=== PATIENT | female | born 1960 | race Caucasian/White ===

== ENCOUNTER 2017-01-13 15:22 | Observation (INO) | payer OTHER ==
[~2017-01-13] VITALS: Ht 162.6 cm; Wt 90.0 kg
[2017-01-13] VITALS (7 sets, daily range): BP systolic 122–136; BP diastolic 57–65; PULSE 69–90; RESP 18–24; TEMP 98.1–98.8; O2SAT 97–99
[~2017-01-13 15:22] MED LIST: ALBU6.7H INH; SYNT137T PO
[2017-01-13] MEDS ORDERED: SODIUM CHLOR 0.9% 1000 ML INJ 1,000 ML IV ONE (15:42)
[2017-01-13] MEDS ORDERED: DILTIAZEM HCL 25 MG/5 ML VIAL IV ONE (15:45)
--- NOTE | 2017-01-13 16:00 | RADRPT ---
EXAM DATE/TIME: 01/13/2017 15:42 [place] COMPARISON: No previous studies available for comparison. INDICATIONS : Chest pain. MEDICAL HISTORY : Hypertension. SURGICAL HISTORY : None. ENCOUNTER: Initial ACUITY: 1 day PAIN SCORE: 10/10 LOCATION: Bilateral chest FINDINGS: A single view of the chest demonstrates the lungs to be symmetrically aerated without evidence of mas s, infiltrate or effusion. The cardiomediastinal contours are unremarkable. Osseous structures are intact. CONCLUSION: 1. No acute cardiopulmonary disease. Wild Alicia MD on January 13, 2017 at 15:58 Board Certified Radiologist. This report was verified electronically.
[2017-01-13] MEDS ORDERED: LEVO-86 PO (16:02)
[2017-01-13] MEDS ORDERED: ALBU.5I NEB (16:02)
[2017-01-13] MEDS ORDERED: AMOX500C PO (16:02)
[2017-01-13] MEDS ORDERED: PANT20 PO (16:02)
[2017-01-13 16:18] LABS: AUTOMATED NEUTROPHIL # 5.9 TH/MM3 (1.8-7.7); BASOPHIL % 0.4 % (0.0-2.0); EOSINOPHIL # 0.2 TH/MM3 (0-0.4); EOSINOPHIL % 1.9 % (0.0-4.0); HEMO FLAGS DIFF FINAL; LYMPH % 24.4 % (9.0-44.0); LYMPHOCYTE # 2.3 TH/MM3 (1.0-4.8); MEAN CELL VOLUME 84.8 FL (80.0-100.0); MEAN CORPUSCULAR HEMOGLOBIN 29.2 PG (27.0-34.0); MEAN CORPUSCULAR HGB CONC 34.5 % (32.0-36.0); MONO % 9.8 % (0.0-8.0); NEUT % 63.5 % (16.0-70.0); PLATELET COUNT 212 TH/MM3 (150-450); RED BLOOD COUNT 4.72 MIL/MM3 (4.00-5.30); RED CELL DISTRIBUTION WIDTH 13.8 % (11.6-17.2); WHITE BLOOD COUNT 9.2 TH/MM3 (4.0-11.0)
[2017-01-13 16:19] LABS: BLOOD, URINE NEG (NEG); COMMENT (UR) CULT NOT INDICATED; CULTURE IF INDICATED CULT NOT INDICATED; GLUCOSE,URINE NEG (NEG); KETONE, URINE NEG (NEG); NITRITE,URINE NEG (NEG); PH, URINE 6.5 (5.0-8.5); SQUAMOUS EPITHELIAL CELL URINE <1 /hpf (0-5); URINE COLOR LIGHT-YELLOW (YELLW/STRAW)
--- NOTE | 2017-01-13 16:23 | PD ---
HPI Chief Complaint: Chest Pain Time Seen by Provider: 15:29 Travel History International Travel<30 days: No Contact w/Intl Traveler<30days: No Traveled to known affect area: No History of Present Illness HPI 56-year-old female that presents to the ED for evolution of possible A. fib. Patient was seen yesterday in urgent care and was diagnosed with bronchitis. She was started on steroids, albuterol inhaler and amoxicillin. Per patient she 's been compliant with the medications except for the prednisone which she has not taken. She last used her inhaler around 6:00 this morning. Per patient today she woke up feeling very weak and tired. She felt like her heart was palpitating. She did not take anymore of the inhaler because of this. She went to the urgent care in the and EKG and found that she was having atrial fibrillation with RVR. Patient was not given any medications but brought here via ambulance for evaluation of this. Per patient she feels chest pressure. Per patient pain is more like a pressure and is 4 out of 10. Per patient he does not radiate. Per patient she feels very anxious. She denies any fevers chills or sweats but she does state having some congestion and cough which is what made her go to the urgent care yesterday. She's had a BUN inhaler in the past with no issues. She does tell me that she had had atrial fibrillation in the past. Per ambulance report she kept going on and off from A. fib. Currently she appears to be in sinus rhythm but ambulance that brought at EKG done at the facility which showed she was in A. fib and RVR with a heart rate of 140s. She does have multiple allergies to medication including antibiotics denies any history of heart disease or VA. PFSH Past Medical History Arthritis: Yes Asthma: Yes Autoimmune Disease: No Anxiety: No Depression: No Heart Rhythm Problems: Yes Cancer: Yes (cervical) Cardiac Catheterization: No Cardiovascular Problems: Yes (SVT) High Cholesterol: Yes Chemotherapy: No Chest Pain: Yes Congestive Heart Failure: No COPD: No Cerebrovascular Accident: No Diabetes: Yes (diet controlled) Patient Takes Glucophage: No Diminished Hearing: No Endocrine: Yes Gastrointestinal Disorders: Yes GERD: Yes Genitourinary: No Headaches: No Hepatitis: No Hiatal Hernia: Yes Hypertension: Yes Immune Disorder: No Implanted Vascular Access Dvce: No Kidney Stones: No Musculoskeletal: Yes (spurs lower back bursitis knees) Neurologic: No Psychiatric: No Reproductive: Yes (endometriosis) Respiratory: Yes (sleep apnea asthma) Immunizations Current: Yes Migraines: No Pneumonia: Yes Radiation Therapy: No Renal Failure: No Seizures: No Sickle Cell Disease: No Sleep Apnea: Yes Thyroid Disease: Yes Ulcer: No Past Surgical History Abdominal Surgery: Yes (lap kimi) AICD: No Cardiac Surgery: Yes (HEART CATH) Section: Yes Cholecystectomy: Yes Coronary Artery Bypass Graft: No Ear Surgery: No Endocrine Surgery: No Eye Surgery: No Genitourinary Surgery: No Gynecologic Surgery: Yes (x2 c-sect ion hysterectomy x3 surgeries for endometriosis) Hysterectomy: Yes Joint Replacement: No Neurologic Surgery: No Oral Surgery: No Pacemaker: No Thoracic Surgery: No Other Surgery: Yes Family History Family Myocardial Infarction: Yes Social History Alcohol Use: No Tobacco Use: No Substance Use: No Allergies-Medications (Allergen,Severity, Reaction): Coded Allergies: codeine (Unverified Allergy, Severe, rash, 01/13/17) meperidine (Unverified Allergy, Severe, rash, 01/13/17) sulfamethoxazole (Unverified Allergy, Severe, HIVES, ITCHING, 01/13/17) trimethoprim (Unverified Allergy, Severe, HIVES, ITCHING, 01/13/17) Reported Meds & Prescriptions Reported Meds & Active Scripts Active Reported Albuterol Neb (Albuterol Sulfate) 2.5 Mg/0.5 Ml Neb 2.5 Mg NEB Q4HR NEB PRN Note: The Albuterol Sulfate Inhalation Solution is concentrated and must be diluted. Read complete instructions carefully before using. Amoxicillin 500 Mg Cap Unknown Dose PO BID Synthroid (Levothyroxine Sodium) 137 Mcg Tab 137 Mcg PO DAILY Protonix (Pantoprazole Sodium) 20 Mg Tab 20 Mg PO DAILY Review of Systems Except as stated in HPI: all other systems reviewed are Neg Physical Exam Narrative GENERAL: SKIN: Warm and dry. HEAD: Atraumatic. Normocephalic. EYES: Pupils equal and round. No scleral icterus. No injection or drainage. ENT: No nasal bleeding or discharge. Mucous membranes pink and moist. Tongue is midline. No uvula deviation. NECK: Trachea midline. No JVD. CARDIOVASCULAR: Regular rate and rhythm. No murmurs, S3, S4. RESPIRATORY: No accessory muscle use. Clear to auscultation. Breath sounds equal bilaterally. GASTROINTESTINAL: Abdomen soft, non-tender, nondistended. Hepatic and splenic margins not palpable. MUSCULOSKELETAL: Extremities without clubbing, cyanosis, or edema. No obvious deformities. Full range of motion of the upper and lower extremities bilaterally. 2+ pulses bilaterally. NEUROLOGICAL: Awake and alert. No obvious cranial nerve deficits. Motor grossly within normal limits. Five out of 5 muscle strength in the arms and legs. Normal speech. PSYCHIATRIC: Appropriate mood and affect; insight and judgment normal. Data Data Last Documented VS Vital Signs Date Time Temp Pulse Resp B/P (MAP) Pulse Ox O2 Delivery O2 Flow Rate FiO2 01/13/17 17:32 70 18 127/58 (81) 97 Room Air 01/13/17 15:35 98.8 Orders Orders Electrocardiogram (01/13/17 15:37) Complete Blood Count With Diff (01/13/17 15:37) Basic Metabolic Panel (Bmp) (01/13/17 15:37) Ckmb (Isoenzyme) Profile (01/13/17 15:37) Troponin I (01/13/17 15:37) Prothrombin Time / Inr (Pt) (01/13/17 15:37) Act Partial Throm Time (Ptt) (01/13/17 15:37) Urinalysis - C+S If Indicated (01/13/17 15:37) Magnesium (Mg) (01/13/17 15:37) Thyroid Stimulating Hormone (01/13/17 15:37) Chest, Single Ap (01/13/17 15:37) Iv Access Insert/Monitor (01/13/17 15:37) Ecg Monitoring (01/13/17 15:37) Oximetry (01/13/17 15:37) Diltiazem Inj (Cardizem Inj) (01/13/17 15:45) Sodium Chlor 0.9% 1000 Ml Inj (Ns 1000 M (01/13/17 15:42) Influenzae A/B Antigen (01/13/17 15:43) Admit Order (Ed Use Only) (01/13/17 18:04) Labs Laboratory Tests Test 01/13/17 15:42 White Blood Count 9.2 TH/MM3 Red Blood Count 4.72 MIL/MM3 Hemoglobin 13.8 GM/DL Hematocrit 40.0 % Mean Corpuscular Volume 84.8 FL Mean Corpuscular Hemoglobin 29.2 PG Mean Corpuscular Hemoglobin Concent 34.5 % Red Cell Distribution Width 13.8 % Platelet Count 212 TH/MM3 Mean Platelet Volume 8.4 FL Neutrophils (%) (Auto) 63.5 % Lymphocytes (%) (Auto) 24.4 % Monocytes (%) (Auto) 9.8 % Eosinophils (%) (Auto) 1.9 % Basophils (%) (Auto) 0.4 % Neutrophils # (Auto) 5.9 TH/MM3 Lymphocytes # (Auto) 2.3 TH/MM3 Monocytes # (Auto) 0.9 TH/MM3 Eosinophils # (Auto) 0.2 TH/MM3 Basophils # (Auto) 0.0 TH/MM3 CBC Comment DIFF FINAL Differential Comment Prothrombin Time 10.0 SEC Prothromb Time International Ratio 0.9 RATIO Activated Partial Thromboplast Time 23.8 SEC Urine Color LIGHT-YELLOW Urine Turbidity CLEAR Urine pH 6.5 Urine Specific [place] 1.011 Urine Protein NEG mg/dL Urine Glucose (UA) NEG mg/dL Urine Ketones NEG mg/dL Urine Occult Blood NEG Urine Nitrite NEG Urine Bilirubin NEG Urine Urobilinogen LESS THAN 2.0 MG/DL Urine Leukocyte Esterase NEG Urine RBC LESS THAN 1 /hpf Urine WBC LESS THAN 1 /hpf Urine Squamous Epithelial Cells <1 /hpf Urine Amorphous Sediment RARE Microscopic Urinalysis Comment CULT NOT INDICATED Blood Urea Nitrogen 10 MG/DL Creatinine 0.82 MG/DL Random Glucose 115 MG/DL Calcium Level 9.2 MG/DL Magnesium Level 2.2 MG/DL Sodium Level 140 MEQ/L Potassium Level 4.0 MEQ/L Chloride Level 106 MEQ/L Carbon Dioxide Level 27.2 MEQ/L Anion Gap 7 MEQ/L Estimat Glomerular Filtration Rate 72 ML/MIN Total Creatine Kinase 76 U/L Troponin I LESS THAN 0.02 NG/ML Thyroid Stimulating Hormone 3rd Gen 0.826 uIU/ML MDM Medical Decision Making Medical Screen Exam Complete: Yes Emergency Medical Condition: Yes Medical Record Reviewed: Yes Interpretation(s) CBC & BMP Diagram 01/13/17 15:42 Calcium Level 9.2, Magnesium Level 2.2 troponin and CKMB negative EKG here showed sinus rythm read by me and attending. EKG done outpatient showed a. fib RVR with HR in 140s. CXR negative Differential Diagnosis Chest pain versus ACS versus atrial fibrillation versus arrhythmia versus congestion versus pneumonia Narrative Course 56-year-old female that presents to the ED for evaluation of chest pain. Patient was properly examined and was found to have signs and symptoms consistent with chest discomfort. Unclear etiology at this time. Patient did have bouts of A. fib documented by ambulance as well as previous urgent care. Here her EKG shows no sign of A. fib and RVR. Labs and imaging were started. Patient was given IV fluids. Labs and imaging showed no sign of acute disease. Patient has been normal at this time. Both EKGs were reviewed by my attending. She recommends admission for further evaluation. Because of the A. fib she recommends admission to medicine instead of the chest pain center she continues to have chest pain. Dr. Jean was made aware of this and agrees with admission. Procedures EKG Prior to Arrival: Yes Diagnosis Primary Impression: Chest pain in adult Additional Impression: Atrial fibrillation Qualified Codes: I48.91 - Unspecified atrial fibrillation Admitting Information Admitting Physician Requests: Observation Harjit Michel Jan 13, 2017 16:23
[2017-01-13 16:29] LABS: APTT (PATIENT) 23.8 SEC (24.3-30.1); INTERNATIONAL NORMALIZED RATIO 0.9 RATIO
[2017-01-13 16:35] LABS: ANION GAP 7 MEQ/L (5-15); BICARBONATE 27.2 MEQ/L (21.0-32.0); BLOOD UREA NITROGEN 10 MG/DL (7-18); CHLORIDE 106 MEQ/L (98-107); GLOMERULAR FILTRATION RATE 72 ML/MIN (>89); MAGNESIUM 2.2 MG/DL (1.5-2.5); SODIUM (NA) 140 MEQ/L (136-145)
[2017-01-13 16:56] LABS: CREATINE KINASE 76 U/L (26-192)
[2017-01-13] MEDS ORDERED: ACETAMINOPHEN 325 MG TAB PO PRN (19:45)
--- NOTE | 2017-01-13 19:52 | HHI.HP ---
HPI Service [facility] Hospitalists Primary Care Physician Clifton Winters MD Admission Diagnosis palpitation. sob Travel History International Travel<30 Days: No Contact w/Intl Traveler <30 Da: No Traveled to Known Affected Are: No History of Present Illness Pt is 56 yo with asthma, remote svt, gastric sleeve, sent to ED by pcp for tachyarrhythmia Over this past weekend pt was seen in urgent care for sore throat, acute bronchitis and asthma exacerbation. She has been taking amoxacillin and albuterol nebs since yesterday. She took a breathing treatment around 6am this morning and around 12:30 began with palpitations and chest tightness. She says that chest heaviness/tightness is typical of her asthma exacerbations but hasn't needed the nebulizer for 3 yrs. She tries to avoid the steroid. In her pcp office ekg was concerning for afib/rvr. By the time she arrived here pt was in sinus rhythm. Review of Systems Other cp' sob palpitation sore throat Past Family Social History Past Medical History asthma hx obesity/xavi. resolved after gastric sleeve surgery cholecystomy hysterectomy endometriosis surgery. hypothyroidism gerd Reported Medications Albuterol Neb (Albuterol Sulfate) 2.5 Mg/0.5 Ml Neb 2.5 Mg NEB Q4HR NEB PRN Note: The Albuterol Sulfate Inhalation Solution is concentrated and must be diluted. Read complete instructions carefully before using. Amoxicillin 500 Mg Cap Unknown Dose PO BID Synthroid (Levothyroxine Sodium) 137 Mcg Tab 137 Mcg PO DAILY Protonix (Pantoprazole Sodium) 20 Mg Tab 20 Mg PO DAILY Allergies: Coded Allergies: codeine (Unverified Allergy, Severe, rash, 01/13/17) meperidine (Unverified Allergy, Severe, rash, 01/13/17) sulfamethoxazole (Unverified Allergy, Severe, HIVES, ITCHING, 01/13/17) trimethoprim (Unverified Allergy, Severe, HIVES, ITCHING, 01/13/17) Family History nc Social History no etoh/tob Physical Exam Vital Signs nad heart reg lung cta abd s/nt ext no edema Vital Signs Date Time Temp Pulse Resp B/P (MAP) Pulse Ox O2 Delivery O2 Flow Rate FiO2 01/13/17 17:32 70 18 127/58 (81) 97 Room Air 01/13/17 17:22 73 18 136/65 (88) 99 Room Air 01/13/17 15:35 98.8 90 24 136/65 (88) 98 Laboratory Laboratory Tests Test 01/13/17 15:42 White Blood Count 9.2 Red Blood Count 4.72 Hemoglobin 13.8 Hematocrit 40.0 Mean Corpuscular Volume 84.8 Mean Corpuscular Hemoglobin 29.2 Mean Corpuscular Hemoglobin Concent 34.5 Red Cell Distribution Width 13.8 Platelet Count 212 Mean Platelet Volume 8.4 Neutrophils (%) (Auto) 63.5 Lymphocytes (%) (Auto) 24.4 Monocytes (%) (Auto) 9.8 Eosinophils (%) (Auto) 1.9 Basophils (%) (Auto) 0.4 Neutrophils # (Auto) 5.9 Lymphocytes # (Auto) 2.3 Monocytes # (Auto) 0.9 Eosinophils # (Auto) 0.2 Basophils # (Auto) 0.0 CBC Comment DIFF FINAL Differential Comment Prothrombin Time 10.0 Prothromb Time International Ratio 0.9 Activated Partial Thromboplast Time 23.8 Urine Color LIGHT-YELLOW Urine Turbidity CLEAR Urine pH 6.5 Urine Specific [place] 1.011 Urine Protein NEG Urine Glucose (UA) NEG Urine Ketones NEG Urine Occult Blood NEG Urine Nitrite NEG Urine Bilirubin NEG Urine Urobilinogen LESS THAN 2.0 Urine Leukocyte Esterase NEG Urine RBC LESS THAN 1 Urine WBC LESS THAN 1 Urine Squamous Epithelial Cells <1 Urine Amorphous Sediment RARE Microscopic Urinalysis Comment CULT NOT INDICATED Blood Urea Nitrogen 10 Creatinine 0.82 Random Glucose 115 Calcium Level 9.2 Magnesium Level 2.2 Sodium Level 140 Potassium Level 4.0 Chloride Level 106 Carbon Dioxide Level 27.2 Anion Gap 7 Estimat Glomerular Filtration Rate 72 Total Creatine Kinase 76 Troponin I LESS THAN 0.02 Thyroid Stimulating Hormone 3rd Gen 0.826 Date/Time Source Procedure Growth Status 01/13/17 15:50 Nasal Washing Influenza Types A,B Antigen (YAZMIN) - Final NEGATIVE FOR FLU A AND B ANTIGEN.... Complete Result Diagram: 01/13/17154101/13/171541 Caprini VTE Risk Assessment Caprini VTE Risk Assessment: No/Low Risk (score <= 1) Caprini Risk Assessment Model Point Value = 1 Point Value = 2 Point Value = 3 Point Value = 5 Age 41-60 Minor surgery BMI > 25 kg/m2 Swollen legs Varicose veins or History of unexplained or recurrent spontaneous Oral contraceptives or hormone replacement Sepsis (< 1 month) Serious lung disease, including pneumonia (< 1 month) Abnormal pulmonary function Acute myocardial infarction Congestive heart failure (< 1 month) History of inflammatory bowel disease Medical patient at bed rest Age 61-74 Arthroscopic surgery Major open surgery (> 45 min) Laparoscopic surgery (> 45 min) Malignancy Confined to bed (> 72 hours) Immobilizing plaster cast Central venous access Age >= 75 History of VTE Family history of VTE Factor V Leiden Prothrombin [id number] Lupus anticoagulant Anticardiolipin antibodies Elevated serum homocysteine Heparin-induced thrombocytopenia Other congenital or acquired thrombophilia Stroke (< 1 month) Elective arthroplasty Hip, pelvis, or leg fracture Acute spinal cord injury (< 1 month) Prophylaxis Regimen Total Risk Factor Score Risk Level Prophylaxis Regimen 0-1 Low Early ambulation 2 Moderate Order ONE of the following: *Sequential Compression Device (SCD) *Heparin 5000 units SQ BID 3-4 Higher Order ONE of the following medications: *Heparin 5000 units SQ TID *Enoxaparin/Lovenox 40 mg SQ daily (WT < 150 kg, CrCl > 30 mL/min) *Enoxaparin/Lovenox 30 mg SQ daily (WT < 150 kg, CrCl > 10-29 mL/min) *Enoxaparin/Lovenox 30 mg SQ BID (WT < 150 kg, CrCl > 30 mL/min) AND/OR *Sequential Compression Device (SCD) 5 or more Highest Order ONE of the following medications: *Heparin 5000 units SQ TID (Preferred with Epidurals) *Enoxaparin/Lovenox 40 mg SQ daily (WT < 150 kg, CrCl > 30 mL/min) *Enoxaparin/Lovenox 30 mg SQ daily (WT < 150 kg, CrCl > 10-29 mL/min) *Enoxaparin/Lovenox 30 mg SQ BID (WT < 150 kg, CrCl > 30 mL/min) AND *Sequential Compression Device (SCD) Assessment and Plan Problem List: (1) Atrial fibrillation ICD Codes: I48.91 - Unspecified atrial fibrillation Status: Acute Plan: afib/rvr...currently sinus asthma with bronchitis Pt apparently had about 2 hrs of afib/rvr. now nsr. It may have been related to her acute respiratory illness She had some chest tightness which is probably related to the rapid afib and asthma...currently resolved. monitor on telemetry. check ce again echo resume her duonebs and abx. if no better could give dose of solumedrol. Pt has low chadsvasc score but says she really wouldn't consider any type of anticoagulation at this point anyway....unless it occurred again will observe her overnight and d/c tomorrow if she remains stable. (2) Asthma ICD Codes: J45.909 - Unspecified asthma, uncomplicated Status: Acute Problem Qualifiers (1) Atrial fibrillation: Qualified Codes: I48.91 - Unspecified atrial fibrillation Troy Espinal MD Jan 13, 2017 19:52
[2017-01-13] MEDS: RESP: ALBUTEROL 2.5 MG/IPRATROPIUM 0.5 MG NEB (SCH) NEB (19:56)
[2017-01-13] MEDS: guaiFENesin E.R. 600 MG TAB PO SCH (21:11)
[2017-01-13 22:09] LABS: CREATINE KINASE 73 U/L (26-192)
[2017-01-14 00:03] VITALS: BP 110/56; PULSE 66; RESP 17; TEMP 97.8; O2SAT 98
[2017-01-14 04:05] VITALS: BP 120/57; PULSE 69; RESP 18; TEMP 98.2; O2SAT 97
[2017-01-14] MEDS ORDERED: LEVOTHYROXINE SODIUM 25 MCG TAB PO SCH (06:00)
[2017-01-14] MEDS ORDERED: LEVOTHYROXINE SODIUM 112 MCG TAB PO SCH (06:00)
[2017-01-14] MEDS: guaiFENesin E.R. 600 MG TAB PO SCH (07:28)
[2017-01-14] MEDS: RESP: ALBUTEROL 2.5 MG/IPRATROPIUM 0.5 MG NEB (SCH) NEB ×3 (07:52→15:24)
[2017-01-14 07:55] VITALS: BP 116/55; PULSE 72; RESP 16; TEMP 98; O2SAT 98
[2017-01-14 08:12] VITALS: PULSE 76
--- NOTE | 2017-01-14 08:16 | EKG ---
Date Performed: 01/13/2017 Time Performed: 15:41:59 PTAGE: 56 years EKG: Sinus rhythm BORDERLINE LEFT AXIS DEVIATION BORDERLINE ECG Compared to prior tracing no significant change PREVIOUS TRACING : 12/12/2010 01.23 DOCTOR: Teetee Holcomb Interpretating Date/Time 01/14/2017 08:12:37
[2017-01-14] MEDS ORDERED: PANTOPRAZOLE SOD 20 MG DELAYED RELEASE TAB PO SCH (09:00)
[2017-01-14] MEDS ORDERED: LEVOFLOXACIN 500 MG TAB PO SCH ×2 (10:00→11:00)
[2017-01-14] MEDS ORDERED: LEVA500T20 PO (10:11)
[2017-01-14 11:45] VITALS: BP 133/63; PULSE 76; RESP 16; TEMP 97.8; O2SAT 100
[2017-01-14] MEDS ORDERED: ASPI81TA11 PO (15:10)
--- NOTE | 2017-01-14 15:13 | HHI.PR ---
Subjective Remarks shortness of breath has improved, no palpitations over night no new concerns Objective Vitals Vital Signs Date Time Temp Pulse Resp B/P (MAP) Pulse Ox O2 Delivery O2 Flow Rate FiO2 01/14/17 11:45 97.8 76 16 133/63 (86) 100 01/14/17 08:12 76 01/14/17 07:55 98.0 72 16 116/55 (75) 98 01/14/17 05:05 21 01/14/17 04:05 98.2 69 18 120/57 (78) 97 01/14/17 00:03 97.8 66 17 110/56 (74) 98 01/13/17 23:00 69 01/13/17 21:27 75 01/13/17 21:00 98.1 73 18 122/57 (78) 97 01/13/17 20:46 130/62 (84) 98 01/13/17 17:32 70 18 127/58 (81) 97 Room Air 01/13/17 17:22 73 18 136/65 (88) 99 Room Air 01/13/17 15:35 98.8 90 24 136/65 (88) 98 Result Diagram: 01/13/17 1542 01/13/17 1542 Other Results Laboratory Tests Test 01/13/17 15:42 01/13/17 20:05 White Blood Count 9.2 TH/MM3 Red Blood Count 4.72 MIL/MM3 Hemoglobin 13.8 GM/DL Hematocrit 40.0 % Mean Corpuscular Volume 84.8 FL Mean Corpuscular Hemoglobin 29.2 PG Mean Corpuscular Hemoglobin Concent 34.5 % Red Cell Distribution Width 13.8 % Platelet Count 212 TH/MM3 Mean Platelet Volume 8.4 FL Neutrophils (%) (Auto) 63.5 % Lymphocytes (%) (Auto) 24.4 % Monocytes (%) (Auto) 9.8 % Eosinophils (%) (Auto) 1.9 % Basophils (%) (Auto) 0.4 % Neutrophils # (Auto) 5.9 TH/MM3 Lymphocytes # (Auto) 2.3 TH/MM3 Monocytes # (Auto) 0.9 TH/MM3 Eosinophils # (Auto) 0.2 TH/MM3 Basophils # (Auto) 0.0 TH/MM3 CBC Comment DIFF FINAL Differential Comment Prothrombin Time 10.0 SEC Prothromb Time International Ratio 0.9 RATIO Activated Partial Thromboplast Time 23.8 SEC Urine Color LIGHT-YELLOW Urine Turbidity CLEAR Urine pH 6.5 Urine Specific [place] 1.011 Urine Protein NEG mg/dL Urine Glucose (UA) NEG mg/dL Urine Ketones NEG mg/dL Urine Occult Blood NEG Urine Nitrite NEG Urine Bilirubin NEG Urine Urobilinogen LESS THAN 2.0 MG/DL Urine Leukocyte Esterase NEG Urine RBC LESS THAN 1 /hpf Urine WBC LESS THAN 1 /hpf Urine Squamous Epithelial Cells <1 /hpf Urine Amorphous Sediment RARE Microscopic Urinalysis Comment CULT NOT INDICATED Blood Urea Nitrogen 10 MG/DL Creatinine 0.82 MG/DL Random Glucose 115 MG/DL Calcium Level 9.2 MG/DL Magnesium Level 2.2 MG/DL Sodium Level 140 MEQ/L Potassium Level 4.0 MEQ/L Chloride Level 106 MEQ/L Carbon Dioxide Level 27.2 MEQ/L Anion Gap 7 MEQ/L Estimat Glomerular Filtration Rate 72 ML/MIN Total Creatine Kinase 76 U/L 73 U/L Troponin I LESS THAN 0.02 NG/ML Thyroid Stimulating Hormone 3rd Gen 0.826 uIU/ML Imaging Last Impressions Chest X-Ray 01/13/17 1537 Signed Impressions: Service Date/Time: Friday, January 13, 2017 15:42 - CONCLUSION: 1. No acute cardiopulmonary disease. Wild Alicia MD Objective Remarks nad heart reg lung cta abd s/nt ext no edema A/P Problem List: (1) Atrial fibrillation ICD Codes: I48.91 - Unspecified atrial fibrillation Status: Acute Plan: afib/rvr...currently sinus asthma with bronchitis Pt apparently had about 2 hrs of afib/rvr. now nsr. It may have been related to her acute respiratory illness She had some chest tightness which is probably related to the rapid afib and asthma...currently resolved. monitor on telemetry - court monitor did not reveal Afib/Flutter echo- pending resume her duonebs and abx. Pt has low chadsvasc score but says she really wouldn't consider any type of anticoagulation at this point anyway....unless it occurred again. recommend aspirin EC 81 mg daily DC home in stable condition on a regular diet as tolerated. Patient to be DC after echo completed. 30- Days Holter monitor at [facility] cardiology and instructed to follow with PCP Dr. Winters Prescriptions for Aspirin EC 81 mg daily, Levaquin 500 mg PO daily x 5 days and Claritin 10 mg PO OTC x 5 days (2) Asthma ICD Codes: J45.909 - Unspecified asthma, uncomplicated Status: Acute Assessment and Plan Patient examined. Assessment and plan formulated with Alisia Drake PA-C. I agree with the above. pt appeared to have a brief period of afib yesterday before arriving at the hospital. she was in sinus when arriving here. could be related to her acute respiratory illness. echo pending. called cp to arrange 30day event monitor. d/c today. fu dr Winters. discussed with him. pt chadsvasc score low. she would not be interested in anticoagulation at this time anyway. no indication for bb or ccb today...but if reoccurs then will likely prescribe. Problem Qualifiers (1) Atrial fibrillation: Qualified Codes: I48.91 - Unspecified atrial fibrillation Alisia Drake Jan 14, 2017 15:13 Troy Espinal MD Jan 14, 2017 15:51
[2017-01-14] MEDS ORDERED: ASPIRIN EC 81 MG TABEC PO SCH (15:15)
[2017-01-14 15:18] VITALS: PULSE 96
[2017-01-14] MEDS ORDERED: CLAR10CA3 PO (15:22)
--- NOTE | 2017-01-14 17:53 | ECHRPT ---
Indication: ATRIAL FIB/FLUTTER CONCLUSIONS The left ventricular systolic function is normal with an estimated ejection fraction in the range of 60-65%. There is trace tricuspid valve regurgitation. BP: 136 / 65 HR: Rhythm: Atrial fibrillation, Atrial flut ter MEASUREMENTS (Male / Female) Normal Values Technical Quality:Fair 2D ECHO LV Diastolic Diameter PLAX 4.1 cm 4.2 - 5.9 / 3.9 - 5.3 cm LV Systolic Diameter PLAX 2.9 cm IVS Diastolic Thickness 0.9 cm 0.6 - 1.0 / 0.6 - 0.9 cm LVPW Diastolic Thickness 0.9 cm 0.6 - 1.0 / 0.6 - 0.9 cm LV Relative Wall Thickness 0.4 LVOT Diameter 2.0 cm Aortic Root Diameter 2.8 cm LA Systolic Diameter LX 3.4 cm 3.0 - 4.0 / 2.7 - 3.8 cm M-MODE AV Cusp Separation MM 2.0 cm DOPPLER AV Peak Velocity 167.0 cm/s AV Peak Gradient 11.2 mmHg AV Mean Gradient 5.0 mmHg AV Velocity Time Integral 27.6 cm LVOT Peak Velocity 126.0 cm/s LVOT Peak Gradient 6.4 mmHg LVOT Velocity Time Integral 25.5 cm AV Area Cont Eq vti 2.9 cm AV Area Cont Eq pk 2.4 cm Mitral E Point Velocity 77.5 cm/s Mitral A Point Velocity 62.7 cm/s Mitral E to A Ratio 1.2 LV E' Lateral Velocity 10.4 cm/s Mitral E to LV E' Lateral Ratio 7.5 LV E' Septal Velocity 7.7 cm/s Mitral E to LV E' Septal Ratio 10.1 TR Peak Velocity 262.0 cm/s TR Peak Gradient 27.5 mmHg Right Atrial Pressure 10.0 mmHg Pulmonary Artery Systolic Pressu 37.5 mmHg Right Ventricular Systolic Press 37.5 mmHg PV Peak Velocity 94.0 cm/s PV Peak Gradient 3.5 mmHg FINDINGS LEFT VENTRICLE Normal left ventricular size. Wall thickness is normal. The left ventricular systolic function is normal with an estimated ejection fraction in the range of 60-65%. RIGHT VENTRICLE The right ventricular size is normal. The right ventricular systoilc function is normal. LEFT ATRIUM The left atrial size is normal. RIGHT ATRIUM The right atrial size is normal. ATRIAL SEPTUM The interatrial septum not well visualized. AORTA The aortic root and proximal ascending aorta are normal in size on limited imaging. MITRAL VALVE Structurally normal mitral valve. No mitral valve regurgitation. No mitral valve stenosis. AORTIC VALVE Trileaflet aortic valve. No aortic valve stenosis or regurgitation. TRICUSPID VALVE There is trace tricuspid valve regurgitation. Normal estimated pulmonary pressures. Structurally normal tricuspid valve. PULMONARY VALVE The pulmonary valve is not well visualized. No pulmonary valve regurgitation. VESSELS The inferior vena cava (IVC) is normal in size. There is greater than 50% respiratory change in dimension of the inferior vena cava (normal). PERICARDIUM No pericardial effusion. Parth Borjas DO (Electronically Signed) Final Date:14 January 2017 17:51
== END 2017-01-14 18:02 | disposition home or self-care (01) ==
LOC: NEPE 15:22 → NEDA 18:06 → NEPFCDU 20:44
PROVIDERS: ADMIT Hospitalist; ATTEND Hospitalist
DX: I48.91 Unspecified atrial fibrillation (principal); J45.909 Unspecified asthma, uncomplicated; R06.02 Shortness of breath; R00.2 Palpitations; R53.1 Weakness; I47.1 Supraventricular tachycardia; R07.89 Other chest pain; G47.33 Obstructive sleep apnea (adult) (pediatric); I10 Essential (primary) hypertension; E78.00 Pure hypercholesterolemia, unspecified; E11.9 Type 2 diabetes mellitus without complications; E03.9 Hypothyroidism, unspecified; K21.9 Gastro-esophageal reflux disease without esophagitis; M19.90 Unspecified osteoarthritis, unspecified site; E66.9 Obesity, unspecified; Z79.899 Other long term (current) drug therapy; Z98.84 Bariatric surgery status
CPT/HCPCS: 71010; 80048; 81001; 82550; 83735; 84443; 84484; 85025; 85610; 85730; 87804; 93005; 93306; 94640; 94664; 96360; G0378; J7030

== ENCOUNTER 2017-06-06 20:06 | Emergency (ER) | payer OTHER ==
[~2017-06-06] VITALS: Ht 162.6 cm; Wt 92.5 kg
[~2017-06-06 20:06] MED LIST changes: +ALBU.5I NEB; -ALBU6.7H INH; +ASPI81TA23 PO; +CLAR10CA3 PO; +LEVA500T33 PO; +LEVO-86 PO; +PANT20 PO; -SYNT137T PO
[2017-06-06 20:10] VITALS: BP 153/85; PULSE 122; RESP 18; TEMP 98.6; O2SAT 99
[2017-06-06 20:45] VITALS: BP 128/77; PULSE 87; RESP 16; O2SAT 99
[2017-06-06 20:54] LABS: AUTOMATED NEUTROPHIL # 5.3 TH/MM3 (1.8-7.7); BASOPHIL # 0.1 TH/MM3 (0-0.2); BASOPHIL % 0.8 % (0.0-2.0); EOSINOPHIL # 0.2 TH/MM3 (0-0.4); EOSINOPHIL % 1.6 % (0.0-4.0); HEMATOCRIT 34.2 % (35.0-46.0); HEMOGLOBIN 10.8 GM/DL (11.6-15.3); LYMPH % 34.7 % (9.0-44.0); LYMPHOCYTE # 3.3 TH/MM3 (1.0-4.8); MEAN CELL VOLUME 71.2 FL (80.0-100.0); MEAN CORPUSCULAR HEMOGLOBIN 22.5 PG (27.0-34.0); MEAN CORPUSCULAR HGB CONC 31.5 % (32.0-36.0); MONO % 6.9 % (0.0-8.0); MONOCYTE # 0.7 TH/MM3 (0-0.9); PLATELET COUNT 284 TH/MM3 (150-450); RED BLOOD COUNT 4.81 MIL/MM3 (4.00-5.30); RED CELL DISTRIBUTION WIDTH 14.7 % (11.6-17.2); WHITE BLOOD COUNT 9.6 TH/MM3 (4.0-11.0)
--- NOTE | 2017-06-06 21:03 | PD ---
HPI Chief Complaint: Cardiac Complaint Time Seen by Provider: 20:38 Travel History International Travel<30 days: No Contact w/Intl Traveler<30days: No Traveled to known affect area: No History of Present Illness HPI The patient is a 56-year-old female with no history of heart disease who complains of heart palpitations, dizziness, shortness of breath beginning at approximately 8 PM today. She states she knew it was atrial fibrillation, she has had it once before. She felt exactly the same way before. In January, the last time she had this atrial fibrillation, it lasted about 2 hours. She states her doctors did not put her on any medication to prevent atrial fibrillation or to slow the rate or anticoagulants, this was just a two-hour episode apparently in the held off of medications at that time. She denies any near syncopal spell. She drinks one half cup of coffee a day and does not drink tea but does take an [id number] medication called Thrive which she states has caffeine in it. She states she missed this morning's dose. It is administered by a patch on her arm. PFSH Past Medical History Arthritis: Yes Asthma: Yes Atrial Fibrillation: Yes Autoimmune Disease: No Blood Disorders: No Anxiety: No Depression: No Heart Rhythm Problems: Yes Cancer: Yes (cervical) Cardiac Catheterization: No Cardiovascular Problems: Yes (SVT) High Cholesterol: Yes Chemotherapy: No Chest Pain: Yes Congestive Heart Failure: No COPD: No Cerebrovascular Accident: No Diabetes: Yes (diet controlled) Patient Takes Glucophage: No Diminished Hearing: No Endocrine: Yes Gastrointestinal Disorders: Yes GERD: Yes Genitourinary: No Headaches: No Hepatitis: No Hiatal Hernia: Yes Heparin Induced Thrombocytopen: No Hypertension: Yes Immune Disorder: No Implanted Vascular Access Dvce: No Kidney Stones: No Musculoskeletal: Yes (spurs lower back bursitis knees) Neurologic: No Psychiatric: No Reproductive: Yes (endometriosis) Respiratory: Yes (sleep apnea asthma) Immunizations Current: Yes Migraines: No Pneumonia: Yes Radiation Therapy: No Renal Failure: No Seizures: No Sickle Cell Disease: No Sleep Apnea: Yes Thyroid Disease: Yes Ulcer: No ?: Not Past Surgical History Abdominal Surgery: Yes (lap kimi) AICD: No Cardiac Surgery: Yes (HEART CATH) Section: Yes Cholecystectomy: Yes Coronary Artery Bypass Graft: No Ear Surgery: No Endocrine Surgery: No Eye Surgery: No Genitourinary Surgery: No Gynecologic Surgery: Yes (x2 c-sect ion hysterectomy x3 surgeries for endometriosis) Hysterectomy: Yes Joint Replacement: No Neurologic Surgery: No Oral Surgery: No Pacemaker: No Thoracic Surgery: No Other Surgery: Yes Family History Family Myocardial Infarction: Yes Social History Alcohol Use: No Tobacco Use: No Substance Use: No Allergies-Medications (Allergen,Severity, Reaction): Coded Allergies: codeine (Unverified Allergy, Severe, rash, 01/13/17) meperidine (Unverified Allergy, Severe, rash, 01/13/17) sulfamethoxazole (Unverified Allergy, Severe, HIVES, ITCHING, 01/13/17) trimethoprim (Unverified Allergy, Severe, HIVES, ITCHING, 01/13/17) Reported Meds & Prescriptions Reported Meds & Active Scripts Active Aspirin EC (Aspirin) 81 Mg Tabdr 81 Mg PO DAILY 30 Days Levaquin (Levofloxacin) 500 Mg Tablet 500 Mg PO DAILY@1100 Reported Albuterol Neb (Albuterol Sulfate) 2.5 Mg/0.5 Ml Neb 2.5 Mg NEB Q4HR NEB PRN Note: The Albuterol Sulfate Inhalation Solution is concentrated and must be diluted. Read complete instructions carefully before using. Synthroid (Levothyroxine Sodium) 137 Mcg Tab 137 Mcg PO DAILY Protonix (Pantoprazole Sodium) 20 Mg Tab 20 Mg PO DAILY Review of Systems Except as stated in HPI: all other systems reviewed are Neg Physical Exam Narrative GENERAL: The patient is alert, oriented 3 in minimal apparent distress with her atrial fibrillation discomfort. Her vital signs show blood pressure 153/85 and heart rate of 122 which is atrial fibrillation with rapid ventricular response but the rest the vital signs are normal. SKIN: Focused skin assessment warm/dry. HEAD: Atraumatic. Normocephalic. EYES: Pupils equal and round. No scleral icterus. No injection or drainage. ENT: No nasal bleeding or discharge. Mucous membranes pink and moist. NECK: Trachea midline. No JVD. CARDIOVASCULAR: Atrial fibrillation with RVR. No murmur appreciated. RESPIRATORY: No accessory muscle use. Clear to auscultation. Breath sounds equal bilaterally. GASTROINTESTINAL: Abdomen soft, non-tender, nondistended. Hepatic and splenic margins not palpable. MUSCULOSKELETAL: No obvious deformities. No clubbing. No cyanosis. No edema. NEUROLOGICAL: Awake and alert. No obvious cranial nerve deficits. Motor grossly within normal limits. Normal speech. PSYCHIATRIC: Appropriate mood and affect; insight and judgment normal. Data Data Last Documented VS Vital Signs Date Time Temp Pulse Resp B/P (MAP) Pulse Ox O2 Delivery O2 Flow Rate FiO2 06/06/17 21:51 78 16 142/67 (92) 99 Room Air 06/06/17 20:23 2.00 06/06/17 20:10 98.6 Orders Orders Electrocardiogram (06/06/17 ) Complete Blood Count With Diff (06/06/17 20:31) Comprehensive Metabolic Panel (06/06/17 20:31) B-Type Natriuretic Peptide (06/06/17 20:43) Troponin I (06/06/17 20:31) Electrocardiogram (06/06/17 20:50) Labs Laboratory Tests Test 06/06/17 20:33 White Blood Count 9.6 TH/MM3 Red Blood Count 4.81 MIL/MM3 Hemoglobin 10.8 GM/DL Hematocrit 34.2 % Mean Corpuscular Volume 71.2 FL Mean Corpuscular Hemoglobin 22.5 PG Mean Corpuscular Hemoglobin Concent 31.5 % Red Cell Distribution Width 14.7 % Platelet Count 284 TH/MM3 Mean Platelet Volume 9.0 FL Neutrophils (%) (Auto) 56.0 % Lymphocytes (%) (Auto) 34.7 % Monocytes (%) (Auto) 6.9 % Eosinophils (%) (Auto) 1.6 % Basophils (%) (Auto) 0.8 % Neutrophils # (Auto) 5.3 TH/MM3 Lymphocytes # (Auto) 3.3 TH/MM3 Monocytes # (Auto) 0.7 TH/MM3 Eosinophils # (Auto) 0.2 TH/MM3 Basophils # (Auto) 0.1 TH/MM3 CBC Comment AUTO DIFF Differential Comment AUTO DIFF CONFIRMED Ovalocytes 1+ Blood Urea Nitrogen 20 MG/DL Creatinine 0.75 MG/DL Random Glucose 148 MG/DL Total Protein 7.3 GM/DL Albumin 3.6 GM/DL Calcium Level 8.6 MG/DL Alkaline Phosphatase 78 U/L Aspartate Amino Transf (AST/SGOT) 18 U/L Alanine Aminotransferase (ALT/SGPT) 28 U/L Total Bilirubin 0.2 MG/DL Sodium Level 140 MEQ/L Potassium Level 3.4 MEQ/L Chloride Level 108 MEQ/L Carbon Dioxide Level 23.8 MEQ/L Anion Gap 8 MEQ/L Estimat Glomerular Filtration Rate 80 ML/MIN Troponin I LESS THAN 0.02 NG/ML B-Type Natriuretic Peptide 98 PG/ML MDM Medical Decision Making Medical Screen Exam Complete: Yes Emergency Medical Condition: Yes Medical Record Reviewed: Yes Interpretation(s) The CBC is normal except for hemoglobin of 10.8 and hematocrit of 34.2. The complete metabolic profile shows a potassium of 3.4, BUN 20, GFR of 80, glucose of 148 but is otherwise unremarkable. The troponin I is normal and the BNP is normal. Differential Diagnosis Atrial fibrillation, acute coronary syndrome, congestive heart failure, electrolyte disorder Narrative Course At approximately 8:40 PM the patient spontaneously converted to normal sinus rhythm. After the normal sinus rhythm began the patient has no symptoms whatsoever. The rate was 79. The patient has a mild anemia. I cannot find a cause why the patient has paroxysmal atrial fibrillation and what caused at this time. Perhaps the caffeine in the medication she takes as a patch. Nevertheless, she should follow-up with her primary care physician. It is now 10:15, the patient has been in normal sinus rhythm since 8:40 PM and is wanting to go home. She is totally asymptomatic. Diagnosis Primary Impression: Paroxysmal atrial fibrillation Additional Instructions: As we discussed, follow-up with your primary care physician next week. It will be their decision to push on medications are not which on medications to prevent , slow the rate atrial fibrillation. In the meantime I would cut back on the caffeine containing patch because that may have stimulated your heart. Med/Other Pt SpecificInfo: No Change to Meds Disposition: 01 DISCHARGE HOME Tristen Briggs MD Jun 06, 2017 21:03
[2017-06-06 21:08] LABS: CHLORIDE 108 MEQ/L (98-107); SODIUM (NA) 140 MEQ/L (136-145)
[2017-06-06 21:11] LABS: CALCIUM 8.6 MG/DL (8.5-10.1)
[2017-06-06 21:12] LABS: ALBUMIN 3.6 GM/DL (3.4-5.0); BICARBONATE 23.8 MEQ/L (21.0-32.0); BLOOD UREA NITROGEN 20 MG/DL (7-18); GLUCOSE,RANDOM 148 MG/DL (74-106)
[2017-06-06 21:15] LABS: ALT (GPT) 28 U/L (10-53); AST (GOT) 18 U/L (15-37); CREATININE 0.75 MG/DL (0.50-1.00); GLOMERULAR FILTRATION RATE 80 ML/MIN (>89)
[2017-06-06 21:16] LABS: TOTAL BILIRUBIN ADULT 0.2 MG/DL (0.2-1.0); TOTAL PROTEIN 7.3 GM/DL (6.4-8.2)
[2017-06-06 21:18] LABS: ALKALINE PHOSPHATASE 78 U/L (45-117)
[2017-06-06 21:20] LABS: TROPONIN I LESS THAN 0.02 NG/ML (0.02-0.05)
[2017-06-06 21:41] LABS: OVALOCYTES 1+ (NORMAL)
[2017-06-06 21:51] VITALS: BP 142/67; PULSE 78; RESP 16; O2SAT 99
[2017-06-06 22:32] VITALS: BP 123/61
--- NOTE | 2017-06-06 22:57 | EKG ---
Date Performed: 06/06/2017 Time Performed: 20:50:26 PTAGE: 56 years EKG: Sinus rhythm INCOMPLETE RIGHT BUNDLE BRANCH BLOCK BORDERLINE ECG NO PREVIOUS TRACING DOCTOR: Donaldo Carrion Interpretating Date/Time 06/06/2017 22:56:57
--- NOTE | 2017-06-06 22:57 | EKG ---
Date Performed: 06/06/2017 Time Performed: 20:33:58 PTAGE: 56 years EKG: ATRIAL FIBRILLATION WITH RAPID VENTRICULAR RESPONSE ABNORMAL RHYTHM ECG PREVIOUS TRACING : 01/13/2017 15.41 Compared to previous tracing, atrial fibrillation has repla norman Sinus rhythm , heart rate has increased. DOCTOR: Donaldo Carrion Interpretating Date/Time 06/06/2017 22:57:45
== END 2017-06-06 22:34 | disposition home or self-care (01) ==
LOC: PHED 20:06
DX: I48.0 Paroxysmal atrial fibrillation (principal); R06.02 Shortness of breath; M19.90 Unspecified osteoarthritis, unspecified site; J45.909 Unspecified asthma, uncomplicated; E78.00 Pure hypercholesterolemia, unspecified; I10 Essential (primary) hypertension; E11.9 Type 2 diabetes mellitus without complications; E07.9 Disorder of thyroid, unspecified; K21.9 Gastro-esophageal reflux disease without esophagitis
CPT/HCPCS: 80053; 83880; 84484; 85025; 93005; 99284

== ENCOUNTER 2017-06-20 15:33 | Emergency (ER) | payer OTHER ==
[2017-06-20 15:46] VITALS: BP 180/85; PULSE 67; RESP 18; TEMP 98; O2SAT 99
[2017-06-20 16:46] LABS: AUTOMATED NEUTROPHIL # 5.5 TH/MM3 (1.8-7.7); BASOPHIL % 0.2 % (0.0-2.0); EOSINOPHIL # 0.1 TH/MM3 (0-0.4); EOSINOPHIL % 1.2 % (0.0-4.0); HEMATOCRIT 35.2 % (35.0-46.0); HEMOGLOBIN 11.2 GM/DL (11.6-15.3); LYMPH % 30.8 % (9.0-44.0); LYMPHOCYTE # 2.8 TH/MM3 (1.0-4.8); MEAN CELL VOLUME 71.5 FL (80.0-100.0); MEAN CORPUSCULAR HEMOGLOBIN 22.6 PG (27.0-34.0); MEAN CORPUSCULAR HGB CONC 31.7 % (32.0-36.0); MEAN PLATELET VOLUME 8.2 FL (7.0-11.0); MONO % 6.6 % (0.0-8.0); MONOCYTE # 0.6 TH/MM3 (0-0.9); NEUT % 61.2 % (16.0-70.0); PLATELET COUNT 273 TH/MM3 (150-450); RED BLOOD COUNT 4.93 MIL/MM3 (4.00-5.30); RED CELL DISTRIBUTION WIDTH 17.8 % (11.6-17.2)
[2017-06-20 16:56] LABS: BICARBONATE 27.3 MEQ/L (21.0-32.0); BLOOD UREA NITROGEN 21 MG/DL (7-18); CALCIUM 8.7 MG/DL (8.5-10.1); CHLORIDE 107 MEQ/L (98-107); CREATININE 0.79 MG/DL (0.50-1.00); GLOMERULAR FILTRATION RATE 75 ML/MIN (>89); GLUCOSE,RANDOM 103 MG/DL (74-106); SODIUM (NA) 142 MEQ/L (136-145)
[2017-06-20 17:12] LABS: DIGOXIN 0.2 NG/ML (0.8-2.0); TROPONIN I LESS THAN 0.02 NG/ML (0.02-0.05)
[2017-06-20] MEDS ORDERED: DIGO0.25 PO (19:50)
[2017-06-20 20:08] VITALS: BP 154/73; PULSE 61; RESP 16; O2SAT 99
[2017-06-20 20:24] VITALS: BP_SYST 158; BP_SYST 160; BP_SYST 166; BP_SYST 167; BP_DIAS 69; BP_DIAS 70; BP_DIAS 73; BP_DIAS 74; RESP 16
--- NOTE | 2017-06-20 20:24 | PD ---
HPI Chief Complaint: Cardiac Complaint Time Seen by Provider: 20:05 Travel History International Travel<30 days: No Contact w/Intl Traveler<30days: No Traveled to known affect area: No History of Present Illness HPI 56-year-old female presents to the emergency department for "fast heart rate". She is diagnosed with new A. fib 2 weeks ago, started on rate control drugs by her service manager Dr. Barr. The drugs were causing her HR to go into the 40s and feel lethargic so the drugs were stopped. 3 days ago when the drugs were stopped she began to have episodes of her heart rate dropping into the 160s upon exertion. She reports this only happens when she stands up and begins walking. She also feels lightheaded and dizzy when this comes on and has to sit down to relieve herself. She has some shortness of breath when this begins. Her service manager put her digoxin which she took her first dose today and is instructed to take it every other day. He patient reports that she has been eating and drinking her normal amount throughout the day. She denies ever passing out. She called her service manager, Dr. Barr, who was unable to return or call by the end of the day. She denies any chest pain, diaphoresis, nausea, vomiting, or fevers. Modifying Factors: None Associated Signs & Symptoms: Fast heart rate, palpitations Risk Factors: Seen for the same with cardiology last week and started on digoxin , took first dose today PFSH Past Medical History Hx Anticoagulant Therapy: Yes (XARELTO PRN) Arthritis: Yes Asthma: Yes Atrial Fibrillation: Yes Autoimmune Disease: No Blood Disorders: No Anxiety: No Depression: No Heart Rhythm Problems: Yes Cancer: Yes (cervical) Cardiac Catheterization: No Cardiovascular Problems: Yes (A-FIB) High Cholesterol: Yes Chemotherapy: No Chest Pain: Yes Congestive Heart Failure: No COPD: No Cerebrovascular Accident: No Diminished Hearing: No Endocrine: Yes Gastrointestinal Disorders: Yes GERD: Yes Genitourinary: No Headaches: No Hepatitis: No Hiatal Hernia: Yes Heparin Induced Thrombocytopen: No Hypertension: Yes Immune Disorder: No Implanted Vascular Access Dvce: No Kidney Stones: No Musculoskeletal: Yes (spurs lower back bursitis knees) Neurologic: No Psychiatric: No Reproductive: Yes (endometriosis) Respiratory: Yes (sleep apnea asthma) Immunizations Current: Yes Migraines: No Pneumonia: Yes Radiation Therapy: No Renal Failure: No Seizures: No Sickle Cell Disease: No Sleep Apnea: Yes Thyroid Disease: Yes Ulcer: No Tetanus Vaccination: > 5 Years Influenza Vaccination: Yes Past Surgical History Abdominal Surgery: Yes (lap kimi) AICD: No Cardiac Surgery: Yes (HEART CATH) Section: Yes Cholecystectomy: Yes Coronary Artery Bypass Graft: No Ear Surgery: No Endocrine Surgery: No Eye Surgery: No Genitourinary Surgery: No Gynecologic Surgery: Yes (x2 c-sect ion hysterectomy x3 surgeries for endometriosis) Hysterectomy: Yes Joint Replacement: No Neurologic Surgery: No Oral Surgery: No Pacemaker: No Thoracic Surgery: No Other Surgery: Yes Family History Family Myocardial Infarction: Yes Social History Alcohol Use: No Tobacco Use: No Substance Use: No Allergies-Medications (Allergen,Severity, Reaction): Coded Allergies: codeine (Unverified Allergy, Severe, rash, 01/13/17) meperidine (Unverified Allergy, Severe, rash, 01/13/17) sulfamethoxazole (Unverified Allergy, Severe, HIVES, ITCHING, 01/13/17) trimethoprim (Unverified Allergy, Severe, HIVES, ITCHING, 01/13/17) Reported Meds & Prescriptions Reported Meds & Active Scripts Active Claritin (Loratadine) 10 Mg Cap 10 Mg PO DAILY Aspirin EC (Aspirin) 81 Mg Tabdr 81 Mg PO DAILY 30 Days Levaquin (Levofloxacin) 500 Mg Tablet 500 Mg PO DAILY@1100 Reported Digoxin 0.25 Mg Tab 0.25 Mg PO DAILY Albuterol Neb (Albuterol Sulfate) 2.5 Mg/0.5 Ml Neb 2.5 Mg NEB Q4HR NEB PRN Note: The Albuterol Sulfate Inhalation Solution is concentrated and must be diluted. Read complete instructions carefully before using. Synthroid (Levothyroxine Sodium) 137 Mcg Tab 137 Mcg PO DAILY Protonix (Pantoprazole Sodium) 20 Mg Tab 20 Mg PO DAILY Review of Systems Except as stated in HPI: all other systems reviewed are Neg General / Constitutional: No: Fever Eyes: No: Blurred Vision HENT: Positive: Vertigo, Lightheadedness Cardiovascular: Positive: Tachycardia, No: Chest Pain or Discomfort Respiratory: No: Cough Gastrointestinal: No: Nausea, Vomiting Genitourinary: No: Urgency Musculoskeletal: No: Myalgias Neurologic: Positive: Dizziness Physical Exam Narrative GENERAL: A well-developed and well-nourished female in no acute distress. Ambulating in the ER without issues. Awake, alert, oriented 3. SKIN: Warm and dry. HEAD: Normocephalic. EYES: No scleral icterus. No injection or drainage. NECK: Supple, trachea midline. No JVD or lymphadenopathy. CARDIOVASCULAR: Regular rate and rhythm without murmurs, gallops, or rubs. Pulses are present and equal bilaterally. RESPIRATORY: Breath sounds equal bilaterally. No accessory muscle use. GASTROINTESTINAL: Abdomen soft, non-tender, nondistended. MUSCULOSKELETAL: No cyanosis, or edema. BACK: Nontender without obvious deformity. No CVA tenderness. NEUROLOGICAL: Awake and alert. Cranial nerves II through XII intact. Motor and sensory grossly within normal limits. Five out of 5 muscle strength in all muscle groups. Normal speech. PSYCHIATRIC: No delusional thought processes. No hallucinations. Data Data Last Documented VS Vital Signs Date Time Temp Pulse Resp B/P (MAP) Pulse Ox O2 Delivery O2 Flow Rate FiO2 06/20/17 20:08 61 16 154/73 (100) 99 Room Air 06/20/17 15:46 98.0 Orders Orders Electrocardiogram (06/20/17 15:46) Complete Blood Count With Diff (06/20/17 15:46) Basic Metabolic Panel (Bmp) (06/20/17 15:46) Ckmb (Isoenzyme) Profile (06/20/17 15:46) Troponin I (06/20/17 15:46) Digoxin (06/20/17 16:04) Labs Laboratory Tests Test 06/20/17 16:04 White Blood Count 9.0 TH/MM3 Red Blood Count 4.93 MIL/MM3 Hemoglobin 11.2 GM/DL Hematocrit 35.2 % Mean Corpuscular Volume 71.5 FL Mean Corpuscular Hemoglobin 22.6 PG Mean Corpuscular Hemoglobin Concent 31.7 % Red Cell Distribution Width 17.8 % Platelet Count 273 TH/MM3 Mean Platelet Volume 8.2 FL Neutrophils (%) (Auto) 61.2 % Lymphocytes (%) (Auto) 30.8 % Monocytes (%) (Auto) 6.6 % Eosinophils (%) (Auto) 1.2 % Basophils (%) (Auto) 0.2 % Neutrophils # (Auto) 5.5 TH/MM3 Lymphocytes # (Auto) 2.8 TH/MM3 Monocytes # (Auto) 0.6 TH/MM3 Eosinophils # (Auto) 0.1 TH/MM3 Basophils # (Auto) 0.0 TH/MM3 CBC Comment DIFF FINAL Differential Comment Blood Urea Nitrogen 21 MG/DL Creatinine 0.79 MG/DL Random Glucose 103 MG/DL Calcium Level 8.7 MG/DL Sodium Level 142 MEQ/L Potassium Level 3.9 MEQ/L Chloride Level 107 MEQ/L Carbon Dioxide Level 27.3 MEQ/L Anion Gap 8 MEQ/L Estimat Glomerular Filtration Rate 75 ML/MIN Total Creatine Kinase 61 U/L Troponin I LESS THAN 0.02 NG/ML Digoxin Level 0.2 NG/ML MDM Medical Decision Making Medical Screen Exam Complete: Yes Emergency Medical Condition: Yes Medical Record Reviewed: Yes Interpretation(s) EKG shows normal sinus rhythm at a rate of 63 bpm with no signs of acute ST elevations or depressions. Laboratory Tests Test 06/20/17 16:04 Hemoglobin 11.2 GM/DL (11.6-15.3) Mean Corpuscular Volume 71.5 FL (80.0-100.0) Mean Corpuscular Hemoglobin 22.6 PG (27.0-34.0) Mean Corpuscular Hemoglobin Concent 31.7 % (32.0-36.0) Red Cell Distribution Width 17.8 % (11.6-17.2) Blood Urea Nitrogen 21 MG/DL (7-18) Estimat Glomerular Filtration Rate 75 ML/MIN (>89) Troponin I LESS THAN 0.02 NG/ML Digoxin Level 0.2 NG/ML (0.8-2.0) Differential Diagnosis Palpitations: Dysrhythmias versus dehydration versus metabolic issues Narrative Course Lab work did not show significant metabolic issues and EKG did not show dysrhythmias currently. She is not in atrial fibrillation. Orthostatic vital signs were done and did not show any signs of orthostasis. She is ambulatory in the ER without issues. I do note that her digoxin level is low and not therapeutic, this is likely because she has just started on the medication with first dose this morning. However, patient will likely need her digoxin levels to be therapeutic since this is an ongoing problem. I will have her take 1 dose of digoxin tomorrow and then continue with every other day dosing as previously discussed with her service manager. She needs to talk to her service manager regarding ongoing issues on Friday and digoxin dosing can be evaluated as well. At this point, my plan would be to release her with follow- up to primary care and cardiology. Return for any worsening in symptoms as needed. The plan was discussed with patient and she states understanding. Diagnosis Primary Impression: Palpitations Med/Other Pt SpecificInfo: Existing Med Changed (Take 1 dose of digoxin tomorrow morning) Disposition: 01 DISCHARGE HOME Condition: Stable Andra Frausto MD Jun 20, 2017 20:24
--- NOTE | 2017-06-22 00:22 | EKG ---
Date Performed: 06/20/2017 Time Performed: 15:58:32 PTAGE: 56 years EKG: Sinus rhythm IRBBB PREVIOUS TRACING : 06/06/2017 20.50 Since the prior tracing, there has been no significan t change DOCTOR: Parth Borjas Interpretating Date/Time 06/22/2017 00:20:16
== END 2017-06-20 21:00 | disposition home or self-care (01) ==
LOC: NEPE 15:33
DX: R00.2 Palpitations (principal); R42 Dizziness and giddiness; R06.02 Shortness of breath; E07.9 Disorder of thyroid, unspecified; Z79.01 Long term (current) use of anticoagulants
CPT/HCPCS: 80048; 80162; 82550; 84484; 85025; 93005; 99284

== ENCOUNTER 2017-12-31 05:41 | Inpatient (IN) ==
[2017-12-31] MEDS ORDERED: Chlorhexidine Gluconate 2% 1 Pack (2 Cloths) TOPICAL ONE (06:01)
[2017-12-31] MEDS ORDERED: Metoprolol Tartrate 25 MG Tablet PO ONE (06:01)
[2017-12-31] MEDS ORDERED: Sodium Chlor 0.9% Inj 500 ML IV.SIG SCH (07:00)
[2017-12-31] MEDS ORDERED: Bupivacaine/Epinephrine Inj 0.25% 50 ML Vial ONE (08:19)
[2017-12-31] MEDS ORDERED: ceFAZolin 2 GM Premix Inj 2 GM/50 ML PIGGYBACK IV.SIG ONE (08:19)
[2017-12-31] MEDS ORDERED: Ketorolac Inj 30 MG/ML (IVP) Vial IV.PUSH ONE (08:30)
[2017-12-31] MEDS ORDERED: Lidocaine PF 1% Inj 5 ML Syringe OTHER ONE (08:30)
[2017-12-31] MEDS ORDERED: Neostigmine Inj 5 MG/5 ML Syringe IV.PUSH ONE (08:30)
[2017-12-31] MEDS ORDERED: Glycopyrrolate Inj 1 MG/5 ML Syringe IV.PUSH ONE (08:30)
[2017-12-31] MEDS ORDERED: fentaNYL Citrate Inj 100 MCG/2 ML Ampul ONE (10:41)
[2017-12-31] MEDS ORDERED: Morphine Inj 4 MG/ML Vial ONE (10:42)
[2017-12-31] MEDS ORDERED: diphenhydrAMINE HCl 12.5 MG/5 ML Elixir UDC PO PRN (10:54)
[2017-12-31] MEDS ORDERED: Post-op Orders (for Pharmacy) OTHER STA (10:54)
[2017-12-31] MEDS ORDERED: *Ondansetron Inj 4 MG/2 ML Vial PERIprocedural Use ONLY ONE (11:01)
[2017-12-31] MEDS ORDERED: *morphine SULFATE 10 MG/ML PERIprocedure ONLY ONE (11:18)
[2017-12-31] MEDS ORDERED: *Promethazine Inj 25 MG/ML Vial PERIprocedural use ONLY ONE (11:18)
[2017-12-31] MEDS ORDERED: *morphine SULFATE 4 MG/ML PERIprocedure ONLY ONE ×2 (12:04→13:37)
[2017-12-31] MEDS: KCL 20 mEq/D5W/NaCl 0.45% Inj 1,000 ML IV.CONT SCH ×2 (12:07→18:12)
[2017-12-31] MEDS: Enoxaparin Inj 40 MG/0.4 ML Syringe SQ SCH (14:44)
[2018-01-01] MEDS: KCL 20 mEq/D5W/NaCl 0.45% Inj 1,000 ML IV.CONT SCH ×3 (05:49→20:41)
[2018-01-01 07:10] LABS: Baso % (Auto) 0.1 % (0.0-2.0); Eos % (Auto) 0.1 % (0.0-4.0); Hematocrit 39.9 % (35.0-46.0); Hemoglobin 13.4 gm/dL (11.6-15.3); Lymph # (Auto) 1.7 th/mm3 (1.0-4.8); Lymph % (Auto) 14.5 % (9.0-44.0); Mean Corpuscular HGB Conc 33.6 % (32.0-36.0); Mean Corpuscular Hemoglobin 29.9 pg (27.0-34.0); Mean Corpuscular Volume 89.1 fL (80.0-100.0); Mean Platelet Volume 8.7 fL (7.0-11.0); Mono # (Auto) 0.7 th/mm3 (0.0-0.9); Mono % (Auto) 5.7 % (0.0-8.0); Neut # (Auto) 9.4 th/mm3 (1.8-7.7); Neut % (Auto) 79.6 % (16.0-70.0); Platelet Count 190 th/mm3 (150-450); Red Blood Count 4.48 mil/mm3 (4.00-5.30); Red Cell Distribution Width 15.3 % (11.6-17.2); White Blood Count 11.9 th/mm3 (4.0-11.0)
[2018-01-01 07:28] LABS: Anion Gap 8 meq/L (5-15); Blood Urea Nitrogen 10 mg/dL (7-18); Calcium 8.3 mg/dL (8.5-10.1); Carbon Dioxide 25.4 meq/L (21.0-32.0); Chloride 108 meq/L (98-107); Glomerular Filtration Rate Greater Than 89 mL/min (>89); Glucose,Random 118 mg/dL (74-106); Sodium 141 meq/L (136-145)
[2018-01-01] MEDS ORDERED: Levothyroxine 112 MCG Tablet PO SCH (09:00)
[2018-01-01] MEDS ORDERED: SYNTHROID 137 MCG PO SCH (10:15)
--- NOTE | 2018-01-01 14:21 | XR ---
EXAM DATE: 01/01/2018 2:17 PM EDT AGE/SEX: 57 years / Female INDICATIONS: Chest pain. CLINICAL DATA: This is the patient's initial encounter. Patient reports that signs and symptoms have been present for 1 day and indicates a pain score of 6/10. MEDICAL/SURGICAL HISTORY: Hypertension. None. COMPARISON: [facility] [place], CHEST SINGLE AP, 01/13/2017. . FINDINGS: A single AP view of the chest demonstrates the lungs to be symmetrically aerated without evidence of mass, infiltrate or effusion. The cardiomediastinal contours are unremarkable. Osseous structures a re intact. CONCLUSION: Negative examination. Electronically signed by: Tobi Jackson MD 01/01/2018 2:19 PM EDT
[2018-01-01] MEDS: Enoxaparin Inj 40 MG/0.4 ML Syringe SQ SCH (14:39)
[2018-01-01] MEDS ORDERED: ALPRAZolam 0.25 MG Tablet PO PRN (17:14)
--- NOTE | 2018-01-01 17:45 | P.PNGS ---
Subjective Interval history: Going slow with fluids C/O "pills getting stuck" Fair pain and nausea control Physical Exam Vital signs: Vital Signs 12/31/17 20:00 01/01/18 00:00 01/01/18 04:00 Temperature 98.3 F 97.3 F L 97.3 F L Pulse Rate 63 60 62 Respiratory Rate 17 18 17 Blood Pressure 108/51 L 121/56 L 125/59 L Pulse Oximetry 97 97 98 01/01/18 08:00 01/01/18 12:00 01/01/18 16:00 Temperature 98.0 F 97.2 F L 98.1 F Pulse Rate 65 64 64 Respiratory Rate 19 18 19 Blood Pressure 150/65 H 145/69 H 148/70 H Pulse Oximetry 99 98 97 Intake & Output 12/31/17 01/01/18 01/01/18 18:59 06:59 18:59 Intake Total 2280 / 2280 1570 / 1570 575 / 575 Output Total 870 / 870 1200 / 1200 Balance 1410 / 1410 370 / 370 575 / 575 Weight 96.8 kg Intake: IV 2250 / 2250 1300 / 1300 575 / 575 D5W/1/2NS + KCL 20 mEq Inj 1, 1000 / 1000 1000 / 1000 375 / 375 000 ML @ 125 mls/hr IV.CONT . Q8H JASON Rx#:[id number] LR 1000 mL Inj 1,000 ML @ 30 1000 / 1000 mls/hr IV.SIG .Q24H JASON Rx#: [id number] Ancef 2 GM Premix Inj 2 gm In 50 / 50 50 ml @ 0 mls/hr IV.SIG .STK- MED ONE Rx#:[id number] Ancef Inj 1,000 MG In NS Inj 200 / 200 100 / 100 100 ML @ 200 mls/hr IV.SIG Q8H JASON Rx#:[id number] Flagyl 500 MG Inj 100 ML @ 100 200 / 200 100 / 100 100 / 100 mls/hr IV.SIG Q8H JASON Rx#: [id number] Oral 30 / 30 270 / 270 Output: Urine 1200 / 1200 Estimated Blood Loss 20 / 20 Urine Amount (Catheter) 850 / 850 Indwelling Urethral Catheter 850 / 850 Narrative: Constitutional: NAD Cardiac: RRR Lungs:CTA Abdomen: normal post-operative tenderness, surgical incision C/D/I - Additional findings Additional findings: Laboratory Results - last 12 hr 01/01/18 01/01/18 06:20 06:20 WBC 11.9 H RBC 4.48 Hgb 13.4 Hct 39.9 MCV 89.1 MCH 29.9 MCHC 33.6 RDW 15.3 Plt Count 190 MPV 8.7 Neut % (Auto) 79.6 H Lymph % (Auto) 14.5 [place] % (Auto) 5.7 Eos % (Auto) 0.1 Baso % (Auto) 0.1 Neut # (Auto) 9.4 H Lymph # (Auto) 1.7 [place] # (Auto) 0.7 Eos # (Auto) 0.0 Baso # (Auto) 0.0 WBC Differential . Differential Comment Auto diff final Sodium 141 Potassium 4.0 Chloride 108 H Carbon Dioxide 25.4 Anion Gap 8 BUN 10 Creatinine 0.65 Estimated GFR Greater than 89 Random Glucose 118 H Calcium 8.3 L Magnesium 2.0 - Urinary Catheter Management Indwelling Urethral Catheter Cath placed during this visit: yes Reason for continuing: Hourly intake/output Insertion date: 12/31/17 Results - Labs 01/01/18 06:20 01/01/18 06:20 Laboratory Results - last 24 hr 01/01/18 01/01/18 06:20 06:20 WBC 11.9 H RBC 4.48 Hgb 13.4 Hct 39.9 MCV 89.1 MCH 29.9 MCHC 33.6 RDW 15.3 Plt Count 190 MPV 8.7 Neut % (Auto) 79.6 H Lymph % (Auto) 14.5 [place] % (Auto) 5.7 Eos % (Auto) 0.1 Baso % (Auto) 0.1 Neut # (Auto) 9.4 H Lymph # (Auto) 1.7 [place] # (Auto) 0.7 Eos # (Auto) 0.0 Baso # (Auto) 0.0 WBC Differential . Differential Comment Auto diff final Sodium 141 Potassium 4.0 Chloride 108 H Carbon Dioxide 25.4 Anion Gap 8 BUN 10 Creatinine 0.65 Estimated GFR Greater than 89 Random Glucose 118 H Calcium 8.3 L Magnesium 2.0 - Imaging Imaging: ITS Impressions Chest X-Ray 01/01/18 00:00 CONCLUSION: Negative examination. Assessment and Plan - Plan 57yo F POD# conversion to RNY -Continue to increase fluids as tolerated -Continue with frequent ambulation Code Status: Full - Attending Attestation The exam, history, and the medical decision-making described in the above note were completed with the assistance of the mid-level provider. I reviewed and agree with the findings presented. I attest that I had a [id number] encounter with the patient on the same day, and personally performed and documented my assessment and findings in the medical record.
[2018-01-01] MEDS: Sucralfate Liq 1 GM/10 ML UDC PO SCH ×2 (18:04→20:35)
[2018-01-02] MEDS: KCL 20 mEq/D5W/NaCl 0.45% Inj 1,000 ML IV.CONT SCH (03:27)
[2018-01-02] MEDS ORDERED: Levothyroxine 112 MCG Tablet PO SCH (06:00)
[2018-01-02] MEDS: Sucralfate Liq 1 GM/10 ML UDC PO SCH ×2 (08:30→14:24)
[2018-01-02] MEDS ORDERED: Simethicone 125 MG Chew Tablet PO PRN (08:50)
[2018-01-02] MEDS: Enoxaparin Inj 40 MG/0.4 ML Syringe SQ SCH (14:22)
[2018-01-02 16:05] VITALS: BP 118/69; PULSE 65; RESP 17; TEMP 98.3; O2SAT 96
--- NOTE | 2018-01-06 20:40 | MP ---
cc: Leonid Camacho MD DATE OF OPERATION: 12/31/2017 PREOPERATIVE DIAGNOSIS: Gastroesophageal reflux uncontrolled by medical management. POSTOPERATIVE DIAGNOSES: 1. Gastroesophageal reflux uncontrolled by medical management. 2. Hiatal hernia. PROCEDURE PERFORMED: 1. Cirilo-en-Y gastric bypass. 2. Laparoscopic hiatal hernia repair. SURGEON: Leonid Camacho MD STRIP MILL OPERATOR: MD Dr. Juan Pierce's assistance was necessary for the procedure due to the complexity of the procedure. Dr. Martinez assisted with manipulation and exposure during the procedure. The critical care physician assistant provided by Vayyar was utilized on the back table in managing the camera. ANESTHESIA: General endotracheal anesthesia. ESTIMATED BLOOD LOSS: 10 mL. FINDINGS: Fatty liver. COMPLICATIONS: None. DESCRIPTION OF PROCEDURE: The patient was brought to the operating room, placed on the operating table in supine position. Bilateral sequential inflation device was placed on the lower extremities. General anesthesia instituted. The abdomen was prepped and draped sterilely. A point in the epigastric region was anesthetized with 0.25% Marcaine with epinephrine. A skin incision was made, 5 mm Optiview port placed under direct vision and pneumoperitoneum created. Under direct vision, a 5 mm left upper quadrant, 12 mm left upper quadrant, 12 mm right upper quadrant and 5 mm right upper quadrant port was placed. Prior to placement of all ports, the skin and peritoneum were anesthetized with 0.25% Marcaine with epinephrine. The patient was placed in reverse Trendelenburg position, left side up. The Zoya-Flex retractor was placed and the left lobe of the liver was retracted. The gastric sleeve was visualized. The proximal stomach was within the patient's chest. The hepatogastric ligament was then opened. The adhesions of the omentum prior to the old staple line were taken down. The inferior aspect of the dale was dissected. A [place] drain was placed around the stomach. The stomach was retracted into the abdominal cavity. Adhesions around the left and right crura of the diaphragm were . The distal esophagus mobilized into the abdominal cavity. The dale of the diaphragm was then approximated with 0 silk suture in a [id number] manner. Posterior interrupted sutures were placed. At this point, the patient's omentum was lifted into the upper abdomen. It was split down the middle to create a path for the Cirilo limb. The ligament of Treitz was identified, a point 40 cm distal identified. The small bowel was divided in this region using the [place] Flex stapler vascular load reinforced with SeamGuard. The distal segment was brought up for a distance of 100 cm. An enterotomy was created in this region, enterotomy in the biliopancreatic limb, and a [id number]-ju-[id number] stapled jejunojejunostomy created in the usual manner. The mesenteric defect at the jejunojejunostomy closed with 2-0 Surgidek suture in a running manner. A point 5 cm distal to the GE junction along the lesser curve identified, the posterior gastric space entered. The stomach was divided in this region using the [place] Flex stapler with gold load. A gastrotomy was then created in the new stomach, enterotomy in the Cirilo limb and gastrojejunostomy was then created, stomal opening of 2 cm. An 18-[place] OG tube was placed across the anastomosis. The defect then closed in 2 layers of running 2-0 Vicryl. Prior to placement of the second layer, Methylene blue instilled through the OG tube. There was no evidence of extravasation. Avitene was then placed over the gastrojejunostomy, jejunojejunostomy and all staple lines. A 10 flat ROXANA placed posterior to the gastrojejunostomy. The operative field was inspected. Hemostasis was present. CO2 was released. All ports were removed. All skin incisions closed with 4-0 Monocryl. The abdominal wall was cleaned and sterile dressing placed. The patient was awakened and taken to the recovery room. MD MARIANELA Kim/shivam , 05:48 PM , 06:01 PM
== END 2018-01-02 17:20 | disposition home or self-care (01) ==
LOC: HSDI 05:41 → N07 15:44
PROVIDERS: ADMIT Surgery; ATTEND Surgery